=== PATIENT | female | born 1975 | race Caucasian/White ===

== ENCOUNTER 2018-10-02 12:42 | Emergency (ER) | payer OTHER ==
[~2018-10-02] VITALS: Ht 162.6 cm; Wt 64.4 kg
[2018-10-02 12:42] VITALS: BP 135/89
== END 2018-10-02 13:37 | disposition home or self-care (01) ==
LOC: ER 12:42
DX: L30.9 Dermatitis, unspecified (principal)
CPT/HCPCS: Z7502